=== PATIENT | male | born 1985 | race Caucasian/White ===

== ENCOUNTER 2018-12-14 12:01 | Emergency (ER) | payer MEDICAID, OTHER ==
[2018-12-14] MEDS: DIPHTH/TET/ACEL PERTUSS (ADULT) 0.5 ML VIAL IM* (13:40)
[2018-12-14] MEDS: LIDOCAINE 1% (MPF) 5 ML VIAL INJ (13:40)
== END 2018-12-14 14:28 | disposition home or self-care (01) ==
LOC: FTE 12:01
DX: L02.511 Cutaneous abscess of right hand (principal); Z23 Encounter for immunization
CPT/HCPCS: 10060; 90471; 90715; 99284-25